=== PATIENT | male | born 1995 | race Two or more races ===

== ENCOUNTER 2021-02-04 01:14 | Emergency (ER) | payer OTHER ==
[~2021-02-04] VITALS: Ht 215.9 cm; Wt 70.3 kg
[2021-02-04] MEDS ORDERED: KETO10TA2 PO (03:45)
[2021-02-04] MEDS ORDERED: CIPRO500 MG PO (03:45)
[2021-02-04] MEDS ORDERED: TAMS0.4C PO (03:45)
== END 2021-02-04 04:04 | disposition home or self-care (01) ==
LOC: ER 01:14
DX: N20.1 Calculus of ureter (principal); R10.31 Right lower quadrant pain

== ENCOUNTER 2021-02-21 15:49 | Outpatient (CLI) | payer OTHER ==
[~2021-02-21 15:49] MED LIST: CIPRO500 MG PO; KETO10TA2 PO; TAMS0.4C PO
== END 2021-02-21 15:54 | disposition home or self-care (01) ==
LOC: RAD 15:49
PROVIDERS: ATTEND General Practice
DX: J01.80 Other acute sinusitis (principal)

== ENCOUNTER 2023-06-15 20:45 | Emergency (ER) | payer OTHER ==
[~2023-06-15] VITALS: Ht 182.9 cm; Wt 75.3 kg
== END 2023-06-15 21:52 | disposition home or self-care (01) ==
LOC: ER 20:45
DX: H66.91 Otitis media, unspecified, right ear (principal)